=== PATIENT | female | born 1970 | race African-American/Black ===

== ENCOUNTER 2023-11-26 20:05 | Emergency (ER) | payer OTHER ==
[~2023-11-26] VITALS: Ht 157.5 cm; Wt 61.0 kg
[2023-11-26 20:08] VITALS: O2SAT 100
[2023-11-26 22:00] LABS: BASOPHILS % 0.6 % (0.0-2.0); EOSINOPHILS % 0.8 % (0.0-5.0); HEMOGLOBIN. 13.3 g/dL (12.0-16.0); LYMPHOCYTES % 33.6 % (20.0-50.0); MEAN CORPUSCULAR HEMOGLOBIN 30.2 pg (28.0-32.0); MEAN CORPUSCULAR HGB CONC 33.3 g/dL (31.0-37.0); MEAN CORPUSCULAR VOLUME 90.7 fL (81.0-99.0); MONOCYTES % 10.7 % (2.0-8.0); NEUTROPHILS % 54.3 % (40.0-76.0); PLATELET 208 x1000/uL (130-400); RED BLOOD CELL COUNT 4.41 mill/uL (4.2-5.4); WHITE BLOOD COUNT 7.1 x1000/uL (4.5-11.0)
[2023-11-26] MEDS: HYDRALAZINE 20MG/ML VIAL IV ONE (22:02)
[2023-11-26 22:11] LABS: INR 0.9; PROTHROMBIN TIME 10.6 sec (9.6-11.0)
[2023-11-26 22:17] LABS: ALANINE AMINOTRANSFERASE 7 IU/L (10-49); ALBUMIN 4.7 g/dL (3.2-4.8); ASPARTATE AMINOTRANSFERASE 20 IU/L (<34); BILIRUBIN TOTAL 0.4 mg/dL (0.1-1.0); CALCIUM 8.9 mg/dL (8.7-10.4); CARBON DIOXIDE 32 mEq/L (21-32); CHLORIDE 102 mEq/L (98-107); CREATININE 0.8 mg/dL (0.6-1.0); GLUCOSE 89 mg/dL (70-105); POTASSIUM 3.3 mEq/L (3.5-5.1); PROTEIN TOTAL 7.1 g/dL (6.0-8.3); SODIUM 139 mEq/L (136-145); TROPONIN I HIGH SENSITIVITY 19 ng/L (3.0-34); UREA NITROGEN BLOOD 16 mg/dL (9-23)
[2023-11-26 22:18] LABS: ETHANOL BLOOD < 10 mg/dL (<10)
[2023-11-26 23:22] VITALS: BP 183/95; PULSE 87; RESP 16; TEMP 98.2
[2023-11-26] MEDS: POTASSIUM CHLORIDE 20MEQ TABLET SR PO ONE (23:32)
== END 2023-11-26 23:45 | disposition home or self-care (01) ==
LOC: ER 20:05
DX: I10 Essential (primary) hypertension (principal); R42 Dizziness and giddiness
CPT/HCPCS: 80053; 80320; 85025; 85610; 84484; 36415; 71045; 70450; 93005; 96374; 99285; J0360; Z7610; G0480